=== PATIENT | female | born 1950 | race African-American/Black ===

== ENCOUNTER 2023-05-08 15:09 | Emergency (ER) | payer MEDICARE, MEDICAID ==
[~2023-05-08] VITALS: Ht 170.2 cm; Wt 113.0 kg
[2023-05-08 15:16] VITALS: BP 131/82; PULSE 76; RESP 18; TEMP 98.6; O2SAT 100
== END 2023-05-08 19:50 | disposition left against medical advice (07) ==
LOC: ER 15:09
DX: M25.511 Pain in right shoulder (principal); Z53.21 Procedure and treatment not carried out due to patient leaving prior to being seen by health care provider
CPT/HCPCS: 99281